=== PATIENT | female | born 1950 | race Caucasian/White ===

== ENCOUNTER → 2018-04-09 | Outpatient (CLI) | payer MEDICARE, OTHER | LOC: MC.RAD 14:30 | DX: Z12.31 Encounter for screening mammogram for malignant neoplasm of breast (principal); N60.19 Diffuse cystic mastopathy of unspecified breast ==

== ENCOUNTER → 2019-06-18 | Outpatient (CLI) | payer MEDICARE, BC | LOC: MC.RAD 11:45 | DX: Z12.31 Encounter for screening mammogram for malignant neoplasm of breast (principal) ==